=== PATIENT | female | born 1940 | race Two or more races ===

== ENCOUNTER 2023-10-18 08:57 | Outpatient (CLI) | payer OTHER | END 2023-10-18 09:03 | disposition home or self-care (01) | LOC: TOM 08:57 | PROVIDERS: ATTEND Internal Medicine Gastroenterology | DX: R10.32 Left lower quadrant pain (principal); K57.30 Diverticulosis of large intestine without perforation or abscess without bleeding; K56.600 Partial intestinal obstruction, unspecified as to cause; R97.0 Elevated carcinoembryonic antigen [CEA] ==

== ENCOUNTER 2025-10-15 07:09 | Inpatient (IN) | payer OTHER ==
[~2025-10-15] VITALS: Ht 147.3 cm; Wt 36.3 kg
--- NOTE | 2025-10-15 07:50 | NUR ---
PACIENTE NO VERBALIZA, HIJA REFIERE QUE TIENE DOLOR ABDOMINAL, NO COME, SE LE LIGIA S/V Y SE UBICA PARA EVALUAR.
[2025-10-15] MEDS ORDERED: HALOPERIDOL LACTATE 5 MG/ML AMPUL IM ONE (08:30)
[2025-10-15] MEDS ORDERED: 0.9 % SODIUM CHLORIDE 1,000 ML IV ONE (08:30)
[2025-10-15 09:15] LABS: BASO % 0.1 % (0.1-1.2); EOS # 0.00 (0.04-0.54); EOS % 0.0 % (0.7-7.0); LYMPH # 0.29 (1.18-3.74); LYMPH % 2.2 % (19.3-53.1); MEAN PLATELET VOLUME 10.50 fl (9.4-12.4); MONO # 0.54 (0.24-0.82); MONO % 4.0 % (4.7-12.5); NEUT # 12.44 (1.56-6.13); NEUT % 93.3 % (34.0-71.1); RED CELL DISTRIBUTION WIDTH 17.2 % (11.6-14.4)
--- NOTE | 2025-10-15 09:21 | NUR ---
NICOL CAUSEY ORIENTA A PTE SOBRE TRATAMIENTO MEDICO ORDENADO. LIGIA MUESTRAS Y ABRE VENOPUNCION SIGUIENDO LAS MEDIDAS ASEPTICAS Y NOTIFICA A CT SOBRE ESTUDIOS PENDIENTES.
[2025-10-15 09:32] LABS: URINE APPEARANCE Cloudy; URINE BILIRRUBIN Small (NEGATIVE); URINE COLOR Dark Yellow; URINE GLUCOSE Negative (NEGATIVE); URINE KETONE Trace (NEGATIVE); URINE LEUKOCYTE Trace; URINE NITRATE Negative; URINE UROBILINOGEN 1.0 E.U./dl
[2025-10-15 09:36] LABS: URINE BACTERIA 1318.7 uL (0.0-1933); URINE EPITHELIAL CELLS 98.4 uL (0.0-38.8); URINE RBC 67.1 uL (0.0-20.8); URINE WBC 146.3 uL (0.0-23.2)
[2025-10-15 09:40] LABS: URINE BLOOD TRACE; URINE CAST > 21.83 uL (0.0-1.40); URINE PROTEIN 100 (NEGATIVE)
[2025-10-15 09:47] LABS: ALT/SGPT 62.0 U/L (12-78); AST/SGOT 94.0 U/L (15-37); BILIRUBIN TOTAL 1.94 mg/dL (0.3-1.2); BILIRUBIN,CONJUGATED 1.3 mg/dL (0.0-0.2); BUN CREA RATIO 38.0 (7.0-25.0); CREATININE SERUM 2.57 mg/dL (0.55-1.02); GFR 17.69; GLUCOSE FASTING 105.0 mg/dL (65-100); OSMOLALITY SERUM 310.0 MOSM/KG (275-295); PHOSPHOKINASE CREATININE 102.0 U/L (26-192)
[2025-10-15 09:54] LABS: TYPE CELLS SQUAMOUS
[2025-10-15 09:55] LABS: COVID-19 AG NEGATIVE (NEGATIVE)
[2025-10-15] MEDS ORDERED: CEFTRIAXONE SODIUM 2,000 MG VIAL IV ONE (12:00)
[2025-10-15] MEDS ORDERED: IPRATROPIUM BROMIDE 0.5 MG/2.5 ML AMPUL.NEB IH SCH (13:06)
[2025-10-15] MEDS ORDERED: FAMOTIDINE/PF 20 MG in 0.9 % SODIUM CHLORIDE 8 ML IV PUSH SCH (13:12)
[2025-10-15] MEDS ORDERED: ENOXAPARIN SODIUM 30 MG/0.3 ML SYRINGE SUBCUTANEO SCH (13:13)
[2025-10-15] MEDS ORDERED: 0.9 % SODIUM CHLORIDE 1,000 ML IV SCH (13:15)
[2025-10-15] MEDS ORDERED: ONDANSETRON HCL 4 MG in 0.9 % SODIUM CHLORIDE 50 ML IV PRN (13:15)
[2025-10-15] MEDS ORDERED: ACETAMINOPHEN 500 MG GEL..CAP PO PRN (13:15)
[2025-10-15] MEDS ORDERED: GUAIFEN/DEXTROMETHORPHAN/PE 10 ML BLIST.PACK PO SCH (14:00)
[2025-10-15] MEDS ORDERED: PIPERACILLIN/TAZOBACTAM SODIUM 2.25 GM in DEXTROSE 5 % IN WATER 50 ML IV SCH (14:00)
[2025-10-15 16:35] VITALS: BP 104/72; O2SAT 96
[2025-10-15] MEDS ORDERED: AMIODARONE HCL 50 MG/ML AMPUL IV NR (16:45)
[2025-10-15] MEDS ORDERED: AMIODARONE HCL 900 MG in DEXTROSE 5 % IN WATER 500 ML IV SCH (16:45)
[2025-10-15 20:44] VITALS: O2SAT 94
[2025-10-15 20:54] VITALS: BP 100/51; O2SAT 90
[2025-10-16] VITALS (8 sets, daily range): BP systolic 88–179; BP diastolic 58–72; O2SAT 90–98
[2025-10-16 06:42] LABS: INR 2.09
[2025-10-16 06:59] LABS: ALT/SGPT 60.0 U/L (12-78); AST/SGOT 97.0 U/L (15-37); BILIRUBIN TOTAL 1.37 mg/dL (0.3-1.2); BILIRUBIN,CONJUGATED 0.94 mg/dL (0.0-0.2)
[2025-10-16 07:11] LABS: CHOL HDL RATIO 3.2 (0-5.0); HDL 48.0 mg/dl (40-60); LDL 75.0 mg/dl (0-130); TSH 3.2 uIU/mL (0.358-3.74); VLDL 29.0 (0-39)
[2025-10-16] MEDS ORDERED: MORPHINE SULFATE 4 MG/ML VIAL IV PRN ×2 (07:15→20:30)
[2025-10-16] MEDS ORDERED: DIPHENHYDRAMINE HCL 50 MG/ML VIAL 1ML IV STA (08:39)
[2025-10-16] MEDS ORDERED: IPRATROPIUM BROMIDE 0.5 MG/2.5 ML AMPUL.NEB IH SCH (21:00)
[2025-10-17 03:25] VITALS: BP 117/76; O2SAT 95
[2025-10-17 05:26] VITALS: O2SAT 90
[2025-10-17 11:11] VITALS: BP 68/42; O2SAT 90
[2025-10-17] MEDS ORDERED: DEXTROSE 5 % AND 0.9 % NACL 1,000 ML IV SCH (13:30)
[2025-10-17] MEDS ORDERED: NOREPINEPHRINE BITARTRATE 8 MG in DEXTROSE 5 % IN WATER 250 ML IV SCH (13:30)
[2025-10-17] MEDS ORDERED: MULTIVIT INFUSN,ADULT 4,VIT K 10 ML VIAL IV SCH (17:00)
[2025-10-17 17:10] VITALS: O2SAT 88
[2025-10-17 18:08] VITALS: BP 111/62
[2025-10-17 21:29] VITALS: O2SAT 95
[2025-10-18 01:11] VITALS: BP 61/35; O2SAT 94
[2025-10-18 08:00] VITALS: BP 76/24; O2SAT 82
[2025-10-18 09:29] VITALS: BP 72/40
[2025-10-18 09:35] VITALS: O2SAT 82
[2025-10-18 16:25] VITALS: O2SAT 86
== END 2025-10-18 20:23 | disposition expired | DRG 444 ==
LOC: ER 07:10 → MEDI 15:04
PROVIDERS: Emergency Medicine; General Practice; ADMIT Internal Medicine; ATTEND Internal Medicine
PROC: BW28ZZZ Computerized Tomography (CT Scan) of Head (ICD-10-PCS; principal; 2025-10-15)
PROC: BW21ZZZ Computerized Tomography (CT Scan) of Abdomen and Pelvis (ICD-10-PCS; 2025-10-15)
PROC: BW40ZZZ Ultrasonography of Abdomen (ICD-10-PCS; 2025-10-15)
PROC: BW24ZZZ Computerized Tomography (CT Scan) of Chest and Abdomen (ICD-10-PCS; 2025-10-15)
PROC: B24BYZZ Ultrasonography of Heart with Aorta using Other Contrast (ICD-10-PCS; 2025-10-15)
PROC: 4A12X4Z Monitoring of Cardiac Electrical Activity, External Approach (ICD-10-PCS; 2025-10-15)
DX: K80.20 Calculus of gallbladder without cholecystitis without obstruction (principal); R65.21 Severe sepsis with septic shock; C34.90 Malignant neoplasm of unspecified part of unspecified bronchus or lung; N17.9 Acute kidney failure, unspecified; J44.1 Chronic obstructive pulmonary disease with (acute) exacerbation; N39.0 Urinary tract infection, site not specified; N18.4 Chronic kidney disease, stage 4 (severe); J90 Pleural effusion, not elsewhere classified; R57.9 Shock, unspecified; I48.91 Unspecified atrial fibrillation; J06.9 Acute upper respiratory infection, unspecified; Z66 Do not resuscitate; Z87.891 Personal history of nicotine dependence; I50.9 Heart failure, unspecified; I27.20 Pulmonary hypertension, unspecified; R09.02 Hypoxemia